=== PATIENT | male | born 1975 | race Caucasian/White ===

== ENCOUNTER 2023-05-07 08:08 | Outpatient (RCR) | payer OTHER, SELFPAY | END 2023-05-29 16:02 | disposition home or self-care (01) | LOC: HO.WCC 08:08 | PROVIDERS: PCP Nurse Practitioner Primary Care; Referring Provider Internal Medicine; Visit Provider Surgery | DX: S31.819D Unspecified open wound of right buttock, subsequent encounter (principal); L72.0 Epidermal cyst; G82.21 Paraplegia, complete; I73.00 Raynaud's syndrome without gangrene; Z92.21 Personal history of antineoplastic chemotherapy | CPT/HCPCS: 99213 ==

== ENCOUNTER 2024-11-23 12:15 | Outpatient (RCR) | payer OTHER, SELFPAY | END 2024-12-27 13:51 | disposition home or self-care (01) | LOC: HO.WCC 12:15 | PROVIDERS: PCP Nurse Practitioner Primary Care; Visit Provider Surgery | DX: L89.313 Pressure ulcer of right buttock, stage 3 (principal); G82.21 Paraplegia, complete; B35.3 Tinea pedis | CPT/HCPCS: 10140; 11042; 11043; 17250; 87070; 87073; 87077; 87186; 87205; 97597; 99212; 99214 ==